=== PATIENT | male | born 1965 | race Caucasian/White ===

== ENCOUNTER 2019-01-23 17:09 | Emergency (ER) | payer SELFPAY ==
[2019-01-23 17:20] VITALS: BP 159/109; PULSE 115; RESP 15; TEMP 36.8; O2SAT 100; BMI 31.1
--- NOTE | 2019-01-23 17:26 | ED.MALEGU ---
HPI - Male Genitourinary <Azra Vargas PA-C - Last Filed: 01/23/19 20:23> General Chief complaint: Urogenital-Male Stated complaint: STATES HAS A BAD INFECTION Time Seen by Provider: 01/23/19 17:26 Source: patient Mode of arrival: Ambulatory Limitations: no limitations History of Present Illness HPI Narrative: This 53-year-old male comes to ED he states mainly secondary to gonorrhea/chlamydia. He states that he has this numerous times, and he feels like this is the same. He has penile discharge and dysuria. He thinks he was exposed to this months ago when in [place] but has not sought treatment until now. He denies any acute changes today. He states he does not have any genital rash or sores. He states he voids medical providers and has numerous ongoing symptoms for 6 months or more including body aches, swelling in his legs, sore gums. He states he has had fever over 100, last a couple of weeks ago, cannot give specific numbers. He states he does not have any chronic medical problems that he has been treated for nor does he have any change in symptoms today. He denies any chest pain or dyspnea. He denies any bowel changes, normal bowel movement yesterday. He denies any drug use, tobacco use, or alcohol. He is homeless currently. He denies any history of mental health problems, hallucinations. He denies any suicidal ideation. He states that he has been eating and drinking normally Related Data Allergies Allergy/AdvReac Type Severity Reaction Status Date / Time No Known Drug Allergies Allergy Verified 01/23/19 17:19 Review of Systems <Azra Vargas PA-C - Last Filed: 01/23/19 20:23> Review of Systems ROS Unobtainable: All systems reviewed & are unremarkable except as noted in HPI and below Patient History <Azra Vargas PA-C - Last Filed: 01/23/19 20:23> Medical History (Updated 01/23/19 @ 19:13 by Azra Vargas PA-C) Patient denies significant medical history (Acute) Surgical History (Updated 01/23/19 @ 18:04 by Azra Vargas PA-C) No history of previous surgery (Acute) Social History Smoking Status: Unknown if ever smoked Social History Smoking Status: Unknown if ever smoked alcohol intake frequency: holidays/special occasions only Substance Use Type: does not use Exam <Azra Vargas PA-C - Last Filed: 01/23/19 20:23> Narrative Exam Narrative: GENERAL APPEARANCE: Patient sitting comfortably, in no distress. HEENT: PERRL, EOMI, no scleral icterus, oropharynx is normal, very poor dentition with mild inflammation on the upper anterior gum line NECK: Supple, no masses LUNGS: Clear to auscultation bilaterally. HEART: Rate and rhythm regular, normal S1 and S2, no S3 or S4. ABDOMEN: Soft, nontender, nondistended, bowel sounds present x 4 quadrants EXTREMITIES: No edema, no cyanosis DERMATOLOGIC: No jaundice, no exanthem visualized : Normal external genitalia, no palpable testicular mass, no lesions or discharge visualized though there is a small amount of white crusting at the meatus Initial Vital Signs Initial Vital Signs: Vital Signs Temperature 98.2 F 01/23/19 17:20 Pulse Rate 115 H 01/23/19 17:20 Respiratory Rate 15 01/23/19 17:20 Blood Pressure 159/109 H 01/23/19 17:20 Pulse Oximetry 100 01/23/19 17:20 <Maryuri Caceres MD - Last Filed: 01/26/19 07:01> Initial Vital Signs Initial Vital Signs: Vital Signs Temperature 98.2 F 01/23/19 17:20 Pulse Rate 115 H 01/23/19 17:20 Respiratory Rate 15 01/23/19 17:20 Blood Pressure 159/109 H 01/23/19 17:20 Pulse Oximetry 100 01/23/19 17:20 Course <Azra Vargas PA-C - Last Filed: 01/23/19 20:23> Course Additional Information: Reviewed history and findings with Dr. Caceres, attending, who agrees reasonable to treat for patient's acute c/o given history of exposure and previous infections. Advised further STD testing, i.e. syphilis, HIV etc, to be done as an outpatient. Also advised follow up with local PCP for numerous chronic complaints such as myalgias and arthralgias and other symptoms he has had for at least 6 months. He agrees to call hospital Resource Center for referral. No evidence of acute changes by history he gives this evening Orders Ordered: Discontinued Medications Azithromycin (Zithromax) 1,000 mg PO NOW ONE Stop: 01/23/19 17:54 Last Admin: 01/23/19 18:24 Dose: 1,000 mg Documented by: LIZET Ceftriaxone Sodium (Rocephin) 250 mg IM NOW ONE Stop: 01/23/19 17:54 Last Admin: 01/23/19 18:44 Dose: 250 mg Documented by: LIZET Vital Signs Vital signs: Vital Signs - 8 hr 01/23/19 17:20 01/23/19 19:22 Temperature 98.2 F Pulse Rate 115 H 67 Respiratory Rate 15 16 Blood Pressure 159/109 H Blood Pressure [Left Arm] 156/80 H Pulse Oximetry 100 95 <Maryuri Caceres MD - Last Filed: 01/26/19 07:01> Orders Ordered: Discontinued Medications Azithromycin (Zithromax) 1,000 mg PO NOW ONE Stop: 01/23/19 17:54 Last Admin: 01/23/19 18:24 Dose: 1,000 mg Documented by: LIZET Ceftriaxone Sodium (Rocephin) 250 mg IM NOW ONE Stop: 01/23/19 17:54 Last Admin: 01/23/19 18:44 Dose: 250 mg Documented by: LIZET Vital Signs Vital signs: Vital Signs - 8 hr 01/23/19 17:20 01/23/19 19:22 Temperature 98.2 F Pulse Rate 115 H 67 Respiratory Rate 15 16 Blood Pressure 159/109 H Blood Pressure [Left Arm] 156/80 H Pulse Oximetry 100 95 MDM - Male Genitourinary <Azra Vargas PA-C - Last Filed: 01/23/19 20:23> Lab Data Labs: Lab Results 01/23/19 01/23/19 Range/Units 17:50 17:50 Urine RBC Cancelled Urine WBC Cancelled Ur Squamous Epith Cells Cancelled Ur Transition Epith Cell Cancelled Ur Renal Epithelial Cell Cancelled Calcium Oxalate Crystal Cancelled Uric Acid Crystals Cancelled Triple Phos Crystals Cancelled Other Crystals Cancelled Amorphous Sediment Cancelled Urine Bacteria Cancelled Hyaline Casts Cancelled Granular Casts Cancelled RBC Casts Cancelled WBC Casts Cancelled Other Casts Cancelled Urine Mucus Cancelled Urine Trichomonas Cancelled Urine Yeast Cancelled Urine Sperm Cancelled Ur Culture Indicated? Cancelled Micro UA Comment Cancelled Ur Chlamydia DNA (PCR) Not detected N gonorrhoeae DNA (PCR) Not detected Urine Dip Bedside Urine Glucose Negative Bedside Urine Bilirubin + 1 Bedside Urine Ketone + 15 Urine Specific [place] 1.030 Bedside Urine Occult Blood - Negative Bedside Urine pH 6.0 Bedside Urine Protein + 30 Bedside Urine Urobilinogen +/- 1mg Bedside Urine Nitrite - Negative Bedside Urine Leukocytes - Negative Esterase <Maryuri Caceres MD - Last Filed: 01/26/19 07:01> Lab Data Labs: Lab Results 01/23/19 01/23/19 Range/Units 17:50 17:50 Urine RBC Cancelled Urine WBC Cancelled Ur Squamous Epith Cells Cancelled Ur Transition Epith Cell Cancelled Ur Renal Epithelial Cell Cancelled Calcium Oxalate Crystal Cancelled Uric Acid Crystals Cancelled Triple Phos Crystals Cancelled Other Crystals Cancelled Amorphous Sediment Cancelled Urine Bacteria Cancelled Hyaline Casts Cancelled Granular Casts Cancelled RBC Casts Cancelled WBC Casts Cancelled Other Casts Cancelled Urine Mucus Cancelled Urine Trichomonas Cancelled Urine Yeast Cancelled Urine Sperm Cancelled Ur Culture Indicated? Cancelled Micro UA Comment Cancelled Ur Chlamydia DNA (PCR) Not detected N gonorrhoeae DNA (PCR) Not detected Urine Dip Bedside Urine Glucose Negative Bedside Urine Bilirubin + 1 Bedside Urine Ketone + 15 Urine Specific [place] 1.030 Bedside Urine Occult Blood - Negative Bedside Urine pH 6.0 Bedside Urine Protein + 30 Bedside Urine Urobilinogen +/- 1mg Bedside Urine Nitrite - Negative Bedside Urine Leukocytes - Negative Esterase Discharge Plan Departure Patient Disposition: Home Clinical Impression: Exposure to potentially hazardous body fluids, Dysuria Discharge Date/Time: 01/23/19 19:27 Instructions: DI for Gonorrhea, DI for Chlamydia Activity Restrictions/Additional Instructions: We have treated you for gonorrhea and chlamydia this evening prior to getting your urinary test results back since you are sure that you were exposed and have had these symptoms in the past. Since you have a number of chronic problems such as your musculoskeletal pain and other issues going on, it is important that you follow-up with a local primary care provider so that you can get any further testing and treatment needed. Please call the [facility] tomorrow at [phone] and let them know you were seen at the emergency room and we would like them to help you with getting set up with a local primary care provider for follow-up. Return if you have any acutely worsening symptoms in the interim
[2019-01-23] MEDS: AZITHROMYCIN 250 MG TABLET 1000 MG PO (18:24)
[2019-01-23] MEDS: cefTRIAXone 500 MG VIAL 250 MG IM (18:44)
[2019-01-23 19:22] VITALS: BP 156/80; PULSE 67; RESP 16; O2SAT 95
[2019-01-23 19:39] LABS: Urine N gonorrhoeae NOT DETECTED
[2019-01-23 19:51] LABS: Urine Chlamydia NOT DETECTED
== END 2019-01-23 19:27 | disposition home or self-care (01) ==
PROVIDERS: Emergency Provider Internal Medicine
DX: R30.0 Dysuria (principal); Z77.21 Contact with and (suspected) exposure to potentially hazardous body fluids
CPT/HCPCS: 81003; 87491; 87591; 96372; 99282; 99283; J0696

== ENCOUNTER 2019-01-29 16:31 | Emergency (ER) | payer SELFPAY ==
[2019-01-29 16:35] VITALS: BP 149/72; PULSE 120; RESP 18; TEMP 36.8; O2SAT 98
[2019-01-29] MEDS: ACETAMINOPHEN 325 MG TABLET 650 MG PO (18:16)
[2019-01-29] MEDS: IBUPROFEN 400 MG TABLET 800 MG PO (18:17)
[2019-01-29] MEDS: AMOXICILLIN/CLAV 875/125 MG 1 TAB PO (18:17)
[2019-01-29 18:42] VITALS: BP 135/89; PULSE 110; RESP 16; O2SAT 100
--- NOTE | 2019-01-29 21:49 | ED.DENTAL ---
HPI - Dental/Oral <DAYTON Reynoso - Last Filed: 01/30/19 01:09> General Chief complaint: Dental/Oral Stated complaint: swollen face Time Seen by Provider: 01/29/19 17:23 Source: patient Mode of arrival: Ambulatory Limitations: no limitations History of Present Illness HPI Narrative: This is 53-year-old gentleman, former smoker, who presents to ED with right-sided face swelling, redness and pain. Patient denies fever, chills, nausea or vomiting. Patient denies any opening to skins, nasal drips/congestion/cough. Patient states trapped pus from teeth and reports loose tooth on right upper mouth but denies tooth pain. Patient currently does not have primary care physician or dentist and is homeless. Related Data Previous Rx's Medication Instructions Recorded amoxicillin-pot clavulanate 1 tab PO BID 7 Days #14 tab 01/29/19 [Augmentin] Allergies Allergy/AdvReac Type Severity Reaction Status Date / Time No Known Drug Allergies Allergy Verified 01/23/19 17:19 Review of Systems <DAYTON Reynoso - Last Filed: 01/30/19 01:09> Review of Systems ROS Unobtainable: All systems reviewed & are unremarkable except as noted in HPI and below Patient History <DAYTON Reynoso - Last Filed: 01/30/19 01:09> Medical History (Updated 01/29/19 @ 18:19 by DAYTON Reynoso) Patient denies significant medical history (Acute) Surgical History (Updated 01/23/19 @ 18:04 by Azra Vargas PA-C) No history of previous surgery (Acute) Social History Smoking Status: Former smoker alcohol intake frequency: holidays/special occasions only Substance Use Type: does not use Exam <DAYTON Reynoso - Last Filed: 01/30/19 01:09> Narrative Exam Narrative: General appearance: well developed, well nourished, in no acute distress. Head: normocephalic, atraumatic, no scalp lesions, non-tender. Eye: pupil equal, round. EOMI. Nose: nares patent. Oral: mucosa moist. Multiple Dental caries in upper and lower mouth with loose tooth in R upper mouth. Neck/Thyroid: neck supple, full range of motion, no visible masses. No cervical lymphadenopathy. Skin: Right side face with mild erythema and edema. Tender to palpate. No suspicious rashes, lesions over other visible areas. Warm and dry. Heart: no clubbing, no cyanosis, no edema. Lungs: Breathing even and unlabored. No stridor. No accessory muscles used. Chest: normal shape and expansion. Abdomen: non-obese, non-distended. Neurologic: alert and oriented. Cognitive exam, BAND SAW FILER and PNS grossly intact on informal exam. Psych: good eye contact, normal affect. Initial Vital Signs Initial Vital Signs: Vital Signs Temperature 98.2 F 01/29/19 16:35 Pulse Rate 120 H 01/29/19 16:35 Respiratory Rate 18 01/29/19 16:35 Blood Pressure 149/72 H 01/29/19 16:35 Pulse Oximetry 98 01/29/19 16:35 <Ciro Jolly DO - Last Filed: 02/01/19 18:22> Initial Vital Signs Initial Vital Signs: Vital Signs Temperature 98.2 F 01/29/19 16:35 Pulse Rate 120 H 01/29/19 16:35 Respiratory Rate 18 01/29/19 16:35 Blood Pressure 149/72 H 01/29/19 16:35 Pulse Oximetry 98 01/29/19 16:35 Scores <DAYTON Reynoso - Last Filed: 01/30/19 01:09> GCS Mehnaz coma scale eye opening: Spontaneous Mehnaz coma scale verbal response: Orientated [place] coma scale motor response: Obey commands [place] coma scale total score: 15 Course <DAYTON Reynoso - Last Filed: 01/30/19 01:09> Orders Ordered: Discontinued Medications Acetaminophen (Tylenol) 650 mg PO NOW ONE Stop: 01/29/19 18:10 Last Admin: 01/29/19 18:16 Dose: 650 mg Documented by: GRETA Amoxicillin/Clavulanate Potassium (Augmentin 875-125 Mg) 1 tab PO NOW ONE Stop: 01/29/19 18:10 Last Admin: 01/29/19 18:17 Dose: 1 tab Documented by: GRETA Ibuprofen (Advil) 800 mg PO NOW ONE Stop: 01/29/19 18:10 Last Admin: 01/29/19 18:17 Dose: 800 mg Documented by: GRETA Vital Signs Vital signs: Vital Signs - 8 hr 01/29/19 18:42 Pulse Rate 110 H Respiratory Rate 16 Blood Pressure [Left Arm] 135/89 Pulse Oximetry 100 <Ciro Jolly DO - Last Filed: 02/01/19 18:22> Orders Ordered: Discontinued Medications Acetaminophen (Tylenol) 650 mg PO NOW ONE Stop: 01/29/19 18:10 Last Admin: 01/29/19 18:16 Dose: 650 mg Documented by: GRETA Amoxicillin/Clavulanate Potassium (Augmentin 875-125 Mg) 1 tab PO NOW ONE Stop: 01/29/19 18:10 Last Admin: 01/29/19 18:17 Dose: 1 tab Documented by: GRETA Ibuprofen (Advil) 800 mg PO NOW ONE Stop: 01/29/19 18:10 Last Admin: 01/29/19 18:17 Dose: 800 mg Documented by: GRETA Vital Signs Vital signs: Vital Signs - 8 hr 01/29/19 18:42 Pulse Rate 110 H Respiratory Rate 16 Blood Pressure [Left Arm] 135/89 Pulse Oximetry 100 MDM - Dental/Oral <DAYTON Reynoso - Last Filed: 01/30/19 01:09> Differential Diagnosis Differential diagnosis: Likely gingival abscess, dental caries and dental abscess Medical Records Attestation: I reviewed the patient's medical records. [facility] Narrative Medical decision making narrative: This is a 53-year-old male who presents to ED with right-sided facial redness, swelling, pain. Physical exam is not consistent with sinus infection. Patient does not have constitutional symptoms. Patient has multiple dental caries in upper and lower mouth. Patient is treated with 1st dose of Augmentin for dental infection and advised to follow up with dentist. The remaining Augmentin dose was prescribed for outpatient use. Patient advised to use Tylenol and or Motrin for discomfort. Patient is homeless and does not have PCP and dentist. Referral phone number to [facility] dental clinic was provided to follow up. Return precautions were discussed with the patient and patient agrees with treatment plan. No further questions were expressed at this time. Discharge Plan Departure Patient Disposition: Home Clinical Impression: Dental abscess Discharge Date/Time: 01/29/19 18:52 Instructions: Tooth Abscess Activity Restrictions/Additional Instructions: You have been diagnosed with [dental infection]. What to do: *Take your medications as directed. Please take your antibiotic medication every 12 hours for next 7 days. You were treated with the 1st dose antibiotic medication here. *Follow up with your primary care provider/dentist in 2-3 days, call for an appointment. Please call [facility] phone number to set up a primary care doctor. You can contact [facility] dental Clinic at [phone] if he can set up an appointment. Let them know you were seen in the ED and that we asked you to be seen in follow up. *Return to ED if you have any new, worsening, or concerning symptoms, such as [fever, severe pain, chest pain, breathing difficulty, redness and warmth spreading on her face or any acute concerns]. Prescriptions: New amoxicillin-pot clavulanate [Augmentin] 875-125 mg tablet 1 tab PO BID 7 Days Qty: 14 RF: 0 Referrals: [facility] [Outside]
== END 2019-01-29 18:52 | disposition home or self-care (01) ==
PROVIDERS: Emergency Provider Nurse Practitioner Family
DX: K04.7 Periapical abscess without sinus (principal)
CPT/HCPCS: 99282; 99283

== ENCOUNTER 2019-02-04 20:24 | Emergency (ER) | payer SELFPAY ==
[2019-02-04 20:33] VITALS: BP 146/90; PULSE 120; RESP 20; TEMP 36.9; O2SAT 99
[2019-02-04] MEDS: IBUPROFEN 400 MG TABLET 800 MG PO (21:08)
[2019-02-04] MEDS: ACETAMINOPHEN 325 MG TABLET 650 MG PO (21:09)
[2019-02-04] MEDS: ONDANSETRON 4 MG ODT SL (21:09)
--- NOTE | 2019-02-04 21:26 | ED_ITS ---
HPI - Dental/Oral <DAYTON Reynoso - Last Filed: 02/04/19 22:50> General Chief complaint: Dental/Oral Stated complaint: states facial swelling Time Seen by Provider: 02/04/19 20:40 Source: patient Mode of arrival: Ambulatory Limitations: no limitations History of Present Illness HPI Narrative: This is 53-year-old gentleman, former smoker, who presents to ED with right face swelling and dental pain. Patient was seen here 6 days ago with same chief complain and discharged to home with Augmentin twice a day for 7 day course. Patient denies fever, chills, vomiting but reports nausea. Patient attempted to seen by dentist but the cost was too much for dental extraction. Patient states he has been taking his antibiotic medication but cut down to half of the prescribed dose to stretch out. Patient is currently does not have PCP and is a homeless. MD Complaint: tooth pain Related Data Previous Rx's Medication Instructions Recorded amoxicillin-pot clavulanate 1 tab PO BID 7 Days #14 tab 01/29/19 [Augmentin] Allergies Allergy/AdvReac Type Severity Reaction Status Date / Time No Known Drug Allergies Allergy Verified 01/23/19 17:19 Review of Systems <DAYTON Reynoso - Last Filed: 02/04/19 22:50> Review of Systems Narrative: General: Denies fever, chills, fatigue, malaise, sweats. HEENT: See HPI Respiratory: Denies dyspnea, cough, wheezing, hemoptysis, sputum. Cardiovascular: Denies chest pain, palpitations, orthopnea, edema. Gastrointestinal: Reports nausea Denies vomiting, abdominal pain, diarrhea, constipation, melena. : Denies dysuria, frequency, incontinence, hematuria, urinary retention. Musculoskeletal: Denies weakness, joint pain or bony pain. Skin: Denies rash, skin lesions, or other. Neurologic: Denies weakness, headache, numbness, change in speech, confusion, seizures, incoordination. Psychiatric: No concerning psychosocial issues. 12-point review of systems is negative except for those stated above. Patient History <DAYTON Reynoso - Last Filed: 02/04/19 22:50> Medical History Patient denies significant medical history (Acute) Surgical History No history of previous surgery (Acute) Social History Smoking Status: Former smoker alcohol intake frequency: holidays/special occasions only Substance Use Type: does not use Exam <DAYTON Reynoso - Last Filed: 02/04/19 22:50> Narrative Exam Narrative: General appearance: Disheveled but well nourished, in no acute distress. Head: normocephalic, atraumatic, no scalp lesions, non-tender. Eye: pupil equal, round. EOMI. Nose: nares patent. Neck/Thyroid: neck supple, full range of motion, no visible masses. Skin: no suspicious rashes, lesions over visible areas. Warm and dry. Heart: no clubbing, no cyanosis, no edema. Lungs: Breathing even and unlabored. No stridor. No accessory muscles used. Chest: normal shape and expansion. Abdomen: non-obese, non-distended. Neurologic: alert and oriented. Cognitive exam, LOCKSTITCH SLEEVE SETTER and PNS grossly intact on informal exam. Initial Vital Signs Initial Vital Signs: Vital Signs Temperature 98.4 F 02/04/19 20:33 Pulse Rate 120 H 02/04/19 20:33 Respiratory Rate 20 02/04/19 20:33 Blood Pressure 146/90 H 02/04/19 20:33 Pulse Oximetry 99 02/04/19 20:33 [facility] Face and sinus: normal facial exam, no erythema, no edema and tenderness on the right malar area Mouth: oral mucosae normal and tongue normal Teeth and gingiva: abnormal tooth or associated gingiva (Poor dentition, several absent teeth, multiple dental caries in R upper) upper right second bicuspid tender and mobile, caries (all of the upper teeth), dentures, gingiva abnormal diffusely erythematous, tender and receding; without any purulent discharge and poor dentition Throat: posterior oropharynx normal and tonsils normal Psych Appearance: disheveled Speech and Movement: speech and movement normal Attitude: cooperative Thought Process: loose association and tangential Thought Content: delusions, no homicidality and suicidality Judgment: fair <Ciro Jolly DO - Last Filed: 02/05/19 06:09> Initial Vital Signs Initial Vital Signs: Vital Signs Temperature 98.4 F 02/04/19 20:33 Pulse Rate 120 H 02/04/19 20:33 Respiratory Rate 20 02/04/19 20:33 Blood Pressure 146/90 H 02/04/19 20:33 Pulse Oximetry 99 02/04/19 20:33 Course <DAYTON Reynoso - Last Filed: 02/04/19 22:50> Orders Ordered: Discontinued Medications Acetaminophen (Tylenol) 650 mg PO NOW ONE Stop: 02/04/19 21:03 Last Admin: 02/04/19 21:09 Dose: 650 mg Documented by: ROMY Ibuprofen (Advil) 800 mg PO NOW ONE Stop: 02/04/19 21:03 Last Admin: 02/04/19 21:08 Dose: 800 mg Documented by: ROMY Ondansetron HCl (Zofran Odt) 4 mg SL NOW ONE Stop: 02/04/19 21:03 Last Admin: 02/04/19 21:09 Dose: 4 mg Documented by: ROMY Vital Signs Vital signs: Vital Signs - 8 hr 02/04/19 20:33 02/04/19 21:30 Temperature 98.4 F Pulse Rate 120 H 99 H Respiratory Rate 20 20 Blood Pressure 146/90 H 144/92 H Pulse Oximetry 99 99 <Ciro Jolly DO - Last Filed: 02/05/19 06:09> Orders Ordered: Discontinued Medications Acetaminophen (Tylenol) 650 mg PO NOW ONE Stop: 02/04/19 21:03 Last Admin: 02/04/19 21:09 Dose: 650 mg Documented by: ROMY Ibuprofen (Advil) 800 mg PO NOW ONE Stop: 02/04/19 21:03 Last Admin: 02/04/19 21:08 Dose: 800 mg Documented by: ROMY Ondansetron HCl (Zofran Odt) 4 mg SL NOW ONE Stop: 02/04/19 21:03 Last Admin: 02/04/19 21:09 Dose: 4 mg Documented by: ROMY Vital Signs Vital signs: Vital Signs - 8 hr 02/04/19 20:33 02/04/19 21:30 Temperature 98.4 F Pulse Rate 120 H 99 H Respiratory Rate 20 20 Blood Pressure 146/90 H 144/92 H Pulse Oximetry 99 99 [facility] - Dental/Oral <DAYTON Reynoso - Last Filed: 02/04/19 22:50> Differential Diagnosis Differential diagnosis: Likely gingival abscess, dental caries, toothache and dental abscess Medical Records Attestation: I reviewed the patient's medical records. [facility] Narrative Medical decision making narrative: This is returning patient from 6 days ago with right upper side dental pain. Patient was discharged to home with Augmentin b.i.d. dose for 7 days. He has been taking the medications but had not completed yet. Patient states attempted to seen by dentist but the cost was too much. Patient repeatedly requesting to do surgery and cut out the teeth and drain the pus and describing his cheek is a size of golf and very painful. Patient explained that does procedure needs to be done by dentist. His right cheek redness and warmth had improved since last time he was evaluated in ED. He instructed to complete his antibiotic medications as scheduled does. Patient was medicated with Tylenol, Motrin and Zofran while in ED for discomfort and offered snacks and juice. Again, [facility] dental office phone number has been provided for patient to call and make a follow-up. Patient verbalized understanding and agrees with the treatment plan. Discharge Plan Departure Patient Disposition: Home Clinical Impression: Pain due to dental caries Discharge Date/Time: 02/04/19 21:25 Instructions: DI for Dental Pain Activity Restrictions/Additional Instructions: You have been diagnosed with [dental infection]. What to do: *Take your medications as directed as prescribed last week. Please continue to take your antibiotic medication every 12 hours and complete the course. *Follow up with your primary care provider/dentist in 2-3 days, call for an appointment. Please call [facility] phone number to set up a primary care doctor. You can contact [facility] dental Clinic at [phone] if he can set up an appointment. Let them know you were seen in the ED and that we asked you to be seen in follow up. *Return to ED if you have any new, worsening, or concerning symptoms, such as [ fever, severe pain, chest pain, breathing difficulty, redness and warmth spreading on her face or any acute concerns]. Prescriptions: No Action amoxicillin-pot clavulanate [Augmentin] 875-125 mg tablet 1 tab PO BID 7 Days Qty: 14 RF: 0
[2019-02-04 21:30] VITALS: BP 144/92; PULSE 99; RESP 20; O2SAT 99
--- NOTE | 2019-02-04 21:33 | PC.NURSE ---
He was seen here by MOLD CHIPPER couple days ago for same and placed on antibiotics,has slight right face swelling.
== END 2019-02-04 21:25 | disposition home or self-care (01) ==
PROVIDERS: Emergency Provider Nurse Practitioner Family
DX: K02.9 Dental caries, unspecified (principal)
CPT/HCPCS: 99282